=== PATIENT | male | born 1970 | race Caucasian/White ===

== ENCOUNTER 2019-02-09 15:07 | Emergency (ER) | payer BC ==
[2019-02-09] MEDS ORDERED: Bacitracin Oint 1 GM U/D Packet TOP ONE (15:09)
--- NOTE | 2019-02-09 15:43 | EDM.PDOC ---
ED HPI GENERAL MEDICAL PROBLEM - General Chief Complaint: Skin Complaint Stated Complaint: FISH HOOK IN RIGHT HAND Time Seen by Provider: 02/09/19 15:09 Source of Information: Reports: Patient History Limitations: Reports: No Limitations - History of Present Illness INITIAL COMMENTS - FREE TEXT/NARRATIVE: Got fish hook in his finger on his right hand Happened just prior to arrival UTD with tetanus. Onset: Today Location: Reports: Upper Extremity, Right Quality: Reports: Ache Severity: Mild Improves with: Reports: None Worsens with: Reports: None - Related Data Allergies Allergy/AdvReac Type Severity Reaction Status Date / Time No Known Allergies Allergy Verified 02/09/19 15:30 Home Meds: Home Meds NK [No Known Home Meds] 02/09/19 [History] Past Medical History - Past Health History Medical/Surgical History: Denies Medical/Surgical History Social & Family History - Tobacco Use Smoking Status *Q: Never Smoker ED ROS GENERAL - Review of Systems Review Of Systems: ROS reveals no pertinent complaints other than HPI. ED EXAM, SKIN/RASH Exam: See Below Exam Limited By: No Limitations General Appearance: Alert, WD/WN, No Apparent Distress Head: Atraumatic, Normocephalic Neck: Normal Inspection, Full Range of Motion Respiratory/Chest: No Respiratory Distress, Lungs Clear, Normal Breath Sounds Cardiovascular: Normal Peripheral Pulses, Regular Rate, Rhythm Extremities: Other (right hand, 2nd finger, fish hook) Neurological: Alert, Oriented, CN II-XII Intact, Normal Cognition, Normal Gait Psychiatric: Normal Affect, Normal Mood Skin: Warm, Dry Location, Skin: Upper Extremity, Right ED SKIN PROCEDURES - Laceration/Wound Repair Right Upper Distal Digit - 2nd (Index) Sterile Dressing Applied: Provider Tetanus Status Addressed: Yes Progress/Comments: Area was anesthetized with lidocaine, 1%; once he felt no discomfort, the camila of hook was pushed through, clipped and then removed; tolerated well; area was cleansed with NS and bacitracin applied with dressing. Course - Vital Signs Last Recorded V/S: Last Vital Signs Temp 97.0 F 02/09/19 15:33 Pulse 71 02/09/19 15:33 Resp 14 02/09/19 15:33 BP 135/77 02/09/19 15:33 Pulse Ox 98 02/09/19 15:33 - Orders/Labs/Meds Orders: Active Orders 24 hr Category Date Time Status Vaccines to be Administered [RC] PER UNIT ROUTINE Care 02/09/19 16:00 Active Meds: Medications Discontinued Medications Generic Name Dose Route Start Last Admin Trade Name Rebecca PRN Reason Stop Dose Admin Bacitracin 1 dose 02/09/19 15:09 02/09/19 16:18 Bacitracin Oint 1 Gm TOP 02/09/19 15:10 1 dose ONETIME ONE Administration Diphtheria/Tetanus/Acell Pertussis 0.5 ml 02/09/19 16:16 02/09/19 16:16 Adacel IM 02/09/19 16:17 0.5 ml .ONCE ONE Administration Lidocaine HCl 5 ml 02/09/19 15:09 02/09/19 16:17 Xylocaine-Mpf 1% INJECT 02/09/19 15:10 5 ml ONETIME ONE Administration Tetanus/Diphtheria Toxoids 0.5 ml 02/09/19 15:59 02/09/19 16:18 Tenivac IM 02/09/19 16:00 Not Given .ONCE ONE Departure - Departure Time of Disposition: 16:30 Disposition: Home, Self-Care 01 Condition: Good Clinical Impression: Fish hook injury of finger Qualifiers: Encounter type: initial encounter Laterality: right Qualified Code(s): S69.91XA - Unspecified injury of right wrist, hand and finger(s), initial encounter - Discharge Information *PRESCRIPTION DRUG MONITORING PROGRAM REVIEWED*: Not Applicable *COPY OF PRESCRIPTION DRUG MONITORING REPORT IN PATIENT JIMMY: Not Applicable Instructions: Puncture Wound, [id number] Referrals: PCP,None [Primary Care Provider] - Forms: ED Department Discharge Additional Instructions: Keep area clean and dry Watch for signs of infection. Please call with questions. Return to ER concerns. - Problem List & Annotations (1) Fish hook injury of finger SNOMED Code(s): 67206729 Code(s): S69.90XA - UNSP INJURY OF UNSP WRIST, HAND AND FINGER(S), INIT ENCNTR Status: Acute Priority: Low Qualifiers: Encounter type: initial encounter Laterality: right Qualified Code(s): S69.91XA - Unspecified injury of right wrist, hand and finger(s), initial encounter - Problem List Review Problem List Initiated/Reviewed/Updated: Yes - My Orders Last 24 Hours: My Active Orders 02/09/19 16:00 Vaccines to be Administered [RC] PER UNIT ROUTINE - Assessment/Plan Last 24 Hours: My Active Orders 02/09/19 16:00 Vaccines to be Administered [RC] PER UNIT ROUTINE
[2019-02-09] MEDS ORDERED: Diphtheria/Tetanus Toxoids,Adult (Td) 0.5 ML SDV IM ONE (15:59)
[2019-02-09] MEDS ORDERED: Diphtheria,Pertussis(Acell),Tetanus Vaccine 0.5 ML SDV IM ONE (16:16)
== END 2019-02-09 16:30 | disposition home or self-care (01) ==
LOC: JP.ED 15:07
DX: S60.450A Superficial foreign body of right index finger, initial encounter (principal); Z23 Encounter for immunization; W45.8XXA Other foreign body or object entering through skin, initial encounter
CPT/HCPCS: 90471; 90715; 99282; J2001